=== PATIENT | female | born 1935 | race Caucasian/White ===

== ENCOUNTER 2017-03-24 10:06 | Emergency (ER) | payer MEDICARE, OTHER ==
[2017-03-24 10:38] LABS: BASOPHIL 0.5 % (0-2); EOSINOPHIL 1.7 % (0-7); HCT 32.2 % (37.0-47.0); HGB 10.2 g/dl (12.5-16.0); LYMPHOCYTE 17.5 % (15-48); MCH 29.1 pg (25.0-31.0); MCHC 31.7 g/dL (32.0-36.0); MONOCYTE 11.4 % (0-12); MPV 10.5 fL (6.0-9.5); NEUTROPHIL 68.9 % (41-80); PLT 245 K/uL (150-400); RDW 17.1 % (11.5-14.0); WBC 6.5 K/uL (4.0-10.5)
[2017-03-24 10:43] LABS: INR 1.84 (0.9-1.2); PROTHROMBIN TIME 20.7 SECONDS (11.7-14.0); PTT 42.6 SECONDS (23.2-31.4)
[2017-03-24 10:51] LABS: POTASSIUM 4.7 mmol/L (3.5-5.1)
== END 2017-03-24 13:05 | disposition home or self-care (01) ==
LOC: FER 10:06
PROVIDERS: Internal Medicine
DX: S00.83XA Contusion of other part of head, initial encounter (principal); W19.XXXA Unspecified fall, initial encounter; Y92.098 Other place in other non-institutional residence as the place of occurrence of the external cause
CPT/HCPCS: 36415; 70450; 73564; 80048; 85025; 85610; 85730